=== PATIENT | male | born 1980 | race Caucasian/White ===

== ENCOUNTER 2024-02-26 04:55 | Day surgery (SDC) | payer BC, OTHER ==
[2024-02-25 15:05] VITALS: BMI 25.1
[2024-02-26] MEDS ORDERED: BUPIVACAINE HCL/PF 0.5% (5MG/ML) 10 ML VIAL ONE (11:11)
[2024-02-26] MEDS ORDERED: LIDOCAINE HCL 2% 100 MG/5 ML DISP.SYRIN ONE (11:44)
[2024-02-26] MEDS ORDERED: DEXAMETHASONE SOD PHOSPHATE 4 MG/1 ML VIAL ONE (11:44)
[2024-02-26] MEDS ORDERED: ACETAMINOPHEN INJECTION 100 ML ONE (11:44)
[2024-02-26] MEDS ORDERED: SEVOFLURANE 250 ML BTL ONE (11:44)
[2024-02-26] MEDS ORDERED: HYDROmorphone HCl 2 MG/ML VIAL ONE (11:44)
[2024-02-26] MEDS ORDERED: ONDANSETRON 4 MG/2 ML VIAL ONE (11:44)
[2024-02-26] MEDS ORDERED: MIDAZOLAM HCL 2 MG/2 ML SINGLE DOSE VIAL ONE (11:44)
[2024-02-26] MEDS ORDERED: ceFAZolin SODIUM 1 GM VIAL ONE (11:44)
[2024-02-26] MEDS ORDERED: PROPOFOL 20 ML ONE (11:44)
[2024-02-26] MEDS ORDERED: SUGAMMADEX SODIUM 200 MG/2 ML VIAL ONE (11:45)
[2024-02-26] MEDS ORDERED: ROCURONIUM BROMIDE 50 MG/5 ML SYRINGE ONE (11:47)
[2024-02-26] MEDS: ceFAZolin SODIUM 1 GM VIAL IVPB ONE (12:15)
[2024-02-26] MEDS: BUPIVACAINE HCL/PF 0.5% (5MG/ML) 10 ML VIAL IJ ONE (12:40)
[2024-02-26] MEDS ORDERED: ONDANSETRON 4 MG/2 ML VIAL IVPUSH PRN (14:32)
[2024-02-26] MEDS ORDERED: oxyCODONE HCL 5 MG TABLET PO PRN (14:32)
[2024-02-26 16:31] VITALS: RESP 18
[2024-02-26 17:36] VITALS: BP 138/83; PULSE 82; TEMP 97.8
== END 2024-02-26 17:20 | disposition home or self-care (01) ==
LOC: JASU-SURG 04:55
PROVIDERS: ATTEND Surgery
PROC: 8E0W4CZ Robotic Assisted Procedure of Trunk Region, Percutaneous Endoscopic Approach (ICD-10-PCS; 2024-02-26)
PROC: 0YU64JZ Supplement Left Inguinal Region with Synthetic Substitute, Percutaneous Endoscopic Approach (ICD-10-PCS; principal; 2024-02-26 11:00)
DX: K40.90 Unilateral inguinal hernia, without obstruction or gangrene, not specified as recurrent (principal)
CPT/HCPCS: 49650; S2900; 86850; 86900; 86901; 94760; C1781; J0131